=== PATIENT | male | born 1990 | race Caucasian/White ===

== ENCOUNTER 2018-10-04 13:27 | Emergency (ER) | payer OTHER ==
[2018-10-04 14:58] VITALS: RESP 18; TEMP 98.2
[2018-10-04 15:24] LABS: Appearance,Urine Clear (Clear); Bilirubin,Urine Negative (Negative); Blood,Urine Negative (Negative); Color,Urine Light Yellow; Glucose,Urine (UA) Negative (Negative); Ketones,Urine Negative (Negative); Leukocyte Esterase,Urine Negative (Negative); Nitrite,Urine Negative (Negative); PH, Urine 6.5 (5.0-8.0); Protein,Urine Negative (Negative); Specific Gravity,Urine 1.007 (1.001-1.035); Urobilinogen,Urine <2.0 mg/dL (<2.0)
--- NOTE | 2018-10-04 15:59 | US ---
EXAMINATION TYPE: US scrotum with doppler. Grayscale and color Doppler Duplex imaging performed of t johanny scrotum. DATE OF EXAM: 10/04/2018 COMPARISON: NONE CLINICAL HISTORY: Pain. left palp for 2 months, no swelling EXAM MEASUREMENTS: TESTICLES: Right Testicle: 4.8 x 3.1 x 2.3 cm Left Testicle: 4.9 x 3.2 x 2.5 cm EPIDIDYMIS HEAD: Right Epididymis: 1.3 cm Left Epididymis: 1.3 cm, at palpable was prominent heterogenous epididymis with tiny cyst 0.6 x 0.6 x 0.3cm. Epididymis is slightly hypervascular. Doppler performed to assess for testicular vascularity; good bilateral color flow and waveforms are s een. There is no evidence of testicular torsion. Presence of hydroceles: no Presence of varicoceles: no IMPRESSION: Heterogenous and slightly hypervascular epididymis appears to relate to epididymitis. Chr onic epididymitis is possible in this patient with 2 months of testicular pain.
[2018-10-04] MEDS ORDERED: cefTRIAXone 250 MG VIAL IM STA (16:08)
[2018-10-04] MEDS ORDERED: DOXYCYCLINE 100 MG CAP PO STA (16:08)
--- NOTE | 2018-10-04 16:47 | ED ---
General Adult HPI - General Chief complaint: Urogenital Stated complaint: scrotal mass Time Seen by Provider: 10/04/18 14:59 Source: patient, RN notes reviewed, old records reviewed Mode of arrival: ambulatory Limitations: no limitations - History of Present Illness Initial comments: 28-year-old male patient presents to ED complaining of lump on left testicle for approximately 1 month. Patient reports that he has a few episodes of painful urination over this time period. Denies any discharge, denies any concern for STI. Denies any past medical history. Denies other complaints. Systemic: Pt denies fatigue, fever/chills, rash. Pt denies weakness, night sweats, weight loss. Neuro: Pt denies headache, visual disturbances, syncope or pre-syncope. HEENT: Pt denies ocular discharge or irritation, otalgia, rhinorrhea, pharyngitis or notable lymphadenopathy. Cardiopulmonary: Pt denies chest pain, SOB, heart palpitations, dyspnea on exertion. Abdominal/GI: Pt denies abdominal pain, n/v/d. : Pt denies burning w/ urination, frequency/urgency. Denies new onset urinary or bowel incontinence. MSK: Pt denies myalgia, loss of strength or function in extremities. Neuro: Pt denies new onset weakness, paresthesias. - Related Data Previous Rx's Medication Instructions Recorded Doxycycline [Vibramycin] 100 mg PO BID 10 Days #20 cap 10/04/18 Allergies Allergy/AdvReac Type Severity Reaction Status Date / Time No Known Allergies Allergy Verified 10/04/18 14:58 Review of Systems ROS Statement: Those systems with pertinent positive or pertinent negative responses have been documented in the HPI. ROS Other: All systems not noted in ROS Statement are negative. Past Medical History Past Medical History: No Reported History History of Any Multi-Drug Resistant Organisms: None Reported Past Surgical History: No Surgical Hx Reported Past Psychological History: No Psychological Hx Reported Smoking Status: Current every day smoker Past Alcohol Use History: Occasional Past Drug Use History: Marijuana General Exam - General Exam Comments Initial Comments: Constitutional: NAD, AOX3, Pt has pleasant affect. HEENT: NC/AT, trachea midline, neck supple, no lymphadenopathy. Posterior pharynx non erythematous, without exudates. External ears appear normal, without discharge. Mucous membranes moist. Eyes PERRLA, EOM intact. There is no scleral icterus. No pallor noted. Cardiopulmonary: RRR, no murmurs, rubs or gallops, no JVD noted. Lungs CTAB in anterior and posterior chamorro. No peripheral edema. Abdominal exam: Abdomen soft and non-distended. Abdomen non-tender to palpation in all 4 quadrants. Bowel sounds active in LLQ. No hepatosplenomegaly. No ecchymosis Neuro: CN II-XII grossly intact. No nuchal rigidity. No raccon eyes, no fay sign, no hemotympanum. No cervical spinal tenderness. MSK: No posterior calf tenderness bilaterally, homans sign negative bilaterally. Posterior tibialis and radial pulse +2 bilaterally. Sensation intact in upper and lower extremities. Full active ROM in upper and lower extremities, 5/5 stregnth. : mildly enlarged painful left epididymitis, no other masses, no hernia, no blue dot sign, creamesteric reflex intact Limitations: no limitations Course Vital Signs 10/04/18 14:56 Temperature 98.2 F Pulse Rate 76 Respiratory 18 Rate Blood Pressure 129/80 O2 Sat by Pulse 99 Oximetry Medical Decision Making - Medical Decision Making 28-year-old male patient presents to ED complaining of lump on left testicle for approximately 1 month. Patient reports that he has a few episodes of painful urination over this time period. Denies any discharge, denies any concern for STI. Denies any past medical history. Denies other complaints. Pt VSS, afebrile. Physical exam displayed: mildly enlarged painful left epididymitis, no other masses, no hernia, no blue dot sign, creamesteric reflex intact UA was negative. Culture, gonorrhea/chlamydia pending. Ultrasound displayed left epididymitis. Patient will be treated with Rocephin IM as well as doxycycline for epididymitis, will be given urology follow-up. Case discussed with Dr. Murdock - Lab Data Lab Results 10/04/18 Range/Units 15:15 Urine Color Light Yellow Urine Appearance Clear (Clear) Urine pH 6.5 (5.0-8.0) Ur Specific [place] 1.007 (1.001-1.035) Urine Protein Negative (Negative) Urine Glucose (UA) Negative (Negative) Urine Ketones Negative (Negative) Urine Blood Negative (Negative) Urine Nitrite Negative (Negative) Urine Bilirubin Negative (Negative) Urine Urobilinogen <2.0 (<2.0) mg/dL Ur Leukocyte Esterase Negative (Negative) Disposition Clinical Impression: Epididymitis Disposition: HOME SELF-CARE Condition: Stable Instructions (If sedation given, give patient instructions): Epididymitis (ED) Additional Instructions: Patient to adhere to previously discussed treatment plan and will take medication(s) as directed. Patient to follow up with PCP in 1-2 days. Patient to return to ED if symptoms do not improve. Take medication as directed. Follow up with primary care provider and urologist tomorrow. Return to ER if condition worsens. Prescriptions: Doxycycline [Vibramycin] 100 mg PO BID 10 Days #20 cap Is patient prescribed a controlled substance at d/c from ED?: No Referrals: None,Stated [Primary Care Provider] - 1-2 days Steven North MD [STAFF PHYSICIAN] - 1-2 days
[2018-10-04 16:54] VITALS: BP 127/72; PULSE 72
[2018-10-05 15:10] LABS: N. gonorrhoeae,PCR Negative (Neg,Equiv); Neisseria Source Urine
[2018-10-05 15:15] LABS: C. trachomatis,PCR Negative (Neg,Equiv); Chlamydia trachomatis Source Urine
== END 2018-10-04 16:54 | disposition home or self-care (01) ==
LOC: EC 13:27
DX: N45.1 Epididymitis (principal); F17.200 Nicotine dependence, unspecified, uncomplicated
CPT/HCPCS: 81003; 87491; 87591; 87086; 93975; 76870; 99284; 96372; J0696

== ENCOUNTER 2019-08-15 13:50 | Emergency (ER) | payer OTHER ==
[2019-08-15 13:59] VITALS: BP 127/83; PULSE 91; RESP 18; TEMP 97.9
[2019-08-15] MEDS ORDERED: SULFAMETHOX-TMP 800-160MG 1 EACH TAB PO STA (14:46)
--- NOTE | 2019-08-15 14:49 | ED ---
Eye Problem HPI - General Chief complaint: Eye Problems Stated complaint: Eye Problem Time Seen by Provider: 08/15/19 14:03 Source: patient Mode of arrival: ambulatory Limitations: no limitations - History of Present Illness Initial comments: Patient is a 29-year-old male presenting to the emergency room with a chief complaint of is it near the eye. Patient states this started about 3 days ago and gradually increased in size. Patient reports now he has developed some swelling on the right eye. Patient denies any pain with extract her movements. Does report some redness of the eye but states that is because he has been constantly itching. Denies any discharge from the eye. Denies any night sweats fever or chills. Patient states he attempted to squeeze the lesion and able to get some pus out of there. - Related Data Previous Rx's Medication Instructions Recorded Doxycycline [Vibramycin] 100 mg PO BID 10 Days #20 cap 10/04/18 Sulfamethox-Tmp 800-160Mg [Bactrim 1 each PO Q12HR #20 tab 08/15/19 Ds] Allergies Allergy/AdvReac Type Severity Reaction Status Date / Time No Known Allergies Allergy Verified 10/04/18 14:58 Review of Systems ROS Statement: Those systems with pertinent positive or pertinent negative responses have been documented in the HPI. ROS Other: All systems not noted in ROS Statement are negative. Past Medical History Past Medical History: No Reported History History of Any Multi-Drug Resistant Organisms: None Reported Past Surgical History: No Surgical Hx Reported Past Psychological History: No Psychological Hx Reported Smoking Status: Current every day smoker Past Alcohol Use History: Occasional Past Drug Use History: Marijuana General Exam Limitations: no limitations General appearance: alert, in no apparent distress Head exam: Present: atraumatic, normocephalic, normal inspection Eye exam: Present: normal appearance (Mild swelling of the right upper eyelid with no cellulitic skin changes noted. No signs of periorbital or orbital cellulitis. Patient does have an abscess near the bridge of the nose and the medial aspect of the right eye.), PERRL, EOMI. Absent: scleral icterus, conjunctival injection, nystagmus, periorbital swelling, periorbital tenderness, other (No pain with extraocular eye movements.) Pupils: Present: normal accommodation ENT exam: Present: normal exam, normal oropharynx, mucous membranes moist Neck exam: Present: normal inspection, full ROM. Absent: tenderness Respiratory exam: Present: normal lung sounds bilaterally. Absent: respiratory distress, wheezes Cardiovascular Exam: Present: regular rate, normal rhythm, normal heart sounds Extremities exam: Present: normal inspection, full ROM. Absent: tenderness Back exam: Present: normal inspection, full ROM. Absent: tenderness Neurological exam: Present: alert, oriented X3 Psychiatric exam: Present: normal affect, normal mood Skin exam: Present: warm, dry, intact, normal color Course Vital Signs 08/15/19 13:57 Temperature 97.9 F Pulse Rate 91 Respiratory 18 Rate Blood Pressure 127/83 O2 Sat by Pulse 96 Oximetry Procedures - Incision & Drainage Consent Obtained: verbal consent Indication: Abscess Site: face Size (cm): 1 I&D Cleaning Method: Alcohol Wipe Sterile Field Used?: No Scalpel Used: #11 Needle Aspiration Performed?: No Irrigation Performed?: No I&D Drainage Obtained: Pus, Blood Culture Obtained?: No Complications: pain, bleeding Patient Tolerated Procedure: well, no complications Medical Decision Making - Medical Decision Making Patient a 29-year-old male presenting to the emergency room with chief complaint of incident near the eye. Patient appears to have a very small abscess. I was able to perform incision and drainage and get pus out of the lesion. Patient reports improvement in symptoms and states it feels like a pressure is not there anymore. Patient tolerated procedure well. Patient started Bactrim in the ED. Will be discharged with a 10 day course of Bactrim. Patient advised to apply warm compresses near the site of the abscess to promote full discharge. No signs of periorbital or orbital cellulitis. No pain with extraocular movements. Return parameters were thoroughly discussed with patient is understanding and agreeable. Case discussed with physician. Disposition Clinical Impression: Abscess of skin, Swelling of right eyelid Disposition: HOME SELF-CARE Condition: Stable Instructions (If sedation given, give patient instructions): Abscess (ED), Abscess Incision and Drainage (ED) Additional Instructions: Take prescribed medication as directed. Apply warm compress to the site that was drained. Return to emergency department if symptoms worsen. Is patient prescribed a controlled substance at d/c from ED?: No Referrals: Jonathan Pritchard MD [Primary Care Provider] - 1-2 days Time of Disposition: 14:49
== END 2019-08-15 14:55 | disposition home or self-care (01) ==
LOC: EC 13:50
DX: H00.031 Abscess of right upper eyelid (principal); F17.200 Nicotine dependence, unspecified, uncomplicated
CPT/HCPCS: 10060; 99283

== ENCOUNTER 2020-09-18 05:16 | Emergency (ER) | payer OTHER ==
[2020-09-18 05:27] VITALS: BP 140/66; PULSE 63; RESP 18; TEMP 98.7
--- NOTE | 2020-09-18 06:29 | ED ---
Extremity Problem HPI - General Chief complaint: Extremity Problem,Nontraumatic Stated complaint: Right arm swelling Time Seen by Provider: 09/18/20 06:03 Source: patient Mode of arrival: ambulatory - History of Present Illness Initial comments: Patient is a 30-year-old male presenting to emergency Department with complaints of pain in his right upper arm. He states he noticed pain for the past week and then noticed a small bump appear yesterday. He is concerned for an abscess. He does admit to being IV drug abuser. He denies any fevers or chills, no nausea or vomiting. Denies any chest pain or shortness of breath. Denies history of blood clots. He has no further complaints. - Related Data Previous Rx's Medication Instructions Recorded Doxycycline [Vibramycin] 100 mg PO BID 10 Days #20 cap 10/04/18 Sulfamethox-Tmp 800-160Mg [Bactrim 1 each PO Q12HR #20 tab 08/15/19 Ds] Cephalexin [Keflex] 500 mg PO Q6HR 7 Days #28 cap 09/18/20 Sulfamethox-Tmp 800-160Mg [Bactrim 1 each PO Q12HR 7 Days #14 tab 09/18/20 Ds] Allergies Allergy/AdvReac Type Severity Reaction Status Date / Time No Known Allergies Allergy Verified 09/18/20 05:27 Review of Systems ROS Statement: Those systems with pertinent positive or pertinent negative responses have been documented in the HPI. ROS Other: All systems not noted in ROS Statement are negative. Past Medical History Past Medical History: Hypertension History of Any Multi-Drug Resistant Organisms: None Reported Past Surgical History: Unable to Obtain Past Psychological History: No Psychological Hx Reported Smoking Status: Current every day smoker Past Alcohol Use History: Occasional Past Drug Use History: IV Drug Use, Marijuana General Exam - General Exam Comments Initial Comments: GENERAL: Patient is well-developed and well-nourished. Patient is nontoxic and in no acute distress. HEAD: Atraumatic, normocephalic. EYES: Pupils equal round and reactive to light, extraocular movements intact, sclera anicteric, conjunctiva are normal. Eyelids were unremarkable. ENT: Moist mucous membranes. NECK: Normal range of motion, supple without lymphadenopathy or JVD. LUNGS: Unlabored respirations. Breath sounds clear to auscultation bilaterally and equal. No wheezes rales or rhonchi. HEART: Regular rate and rhythm without murmurs, rubs or gallops. ABDOMEN: Soft, nontender, normoactive bowel sounds. MUSCULOSKELETAL: Normal extremities with adequate strength and normal range of motion, no pitting or edema. No clubbing or cyanosis. NEUROLOGICAL: Patient is alert and oriented x 3. SKIN: Warm, Dry, normal turgor. Patient has a very small area of induration noted, approximately 0.5 cm in diameter, of the right upper arm, there is some mild erythema present, there is no fluctuance, no abscess to drain at this time. There is no spreading erythema, no lines. Course Vital Signs 09/18/20 05:22 Temperature 98.7 F Pulse Rate 63 Respiratory 18 Rate Blood Pressure 140/66 O2 Sat by Pulse 93 L Oximetry Medical Decision Making - Medical Decision Making Patient is a 30-year-old male here with right upper arm pain for the past week, is a small area of induration over the right upper arm. He admits to IV drug abuse. Consistent with developing abscess. There is no fluctuance, nothing to drain at this time. Patient be started on antibiotics. Hes agreeable to this p federico of care. Return parameters were discussed with him and he verbalized understanding. Disposition Clinical Impression: Abscess of right upper extremity, IV drug user Disposition: HOME SELF-CARE Condition: Stable Instructions (If sedation given, give patient instructions): Abscess (ED) Additional Instructions: Please return to the Emergency Department if symptoms worsen or any other concerns. Take both antibiotics as prescribed. Use warmth to the area. Avoid IV drugs. Prescriptions: Sulfamethox-Tmp 800-160Mg [Bactrim Ds] 1 each PO Q12HR 7 Days #14 tab Cephalexin [Keflex] 500 mg PO Q6HR 7 Days #28 cap Is patient prescribed a controlled substance at d/c from ED?: No Referrals: Jonathan Pritchard MD [Primary Care Provider] - 1-2 days Time of Disposition: 06:29
== END 2020-09-18 06:42 | disposition home or self-care (01) ==
LOC: EC 05:16
DX: L02.413 Cutaneous abscess of right upper limb (principal); F19.10 Other psychoactive substance abuse, uncomplicated; I10 Essential (primary) hypertension; F17.200 Nicotine dependence, unspecified, uncomplicated; F12.90 Cannabis use, unspecified, uncomplicated
CPT/HCPCS: 99283

== ENCOUNTER 2020-10-01 15:06 | Emergency (ER) | payer OTHER ==
--- NOTE | 2020-10-01 18:27 | ED ---
General Adult HPI - General Chief complaint: Recheck/Abnormal Lab/Rx Stated complaint: Detox Time Seen by Provider: 10/01/20 18:03 Source: patient, family Mode of arrival: ambulatory Limitations: no limitations - History of Present Illness Initial comments: 30-year-old male presenting to the emergency department with chief complaint of withdrawing from Suboxone. Patient reports he was recently kicked out of his Suboxone contract and nondistended to control. Last time he used was about 3 days ago he's been getting off the streets. Patient is requesting something to help with the withdrawal symptoms. He reports inability to sleep and racing thoughts. Abdominal cramping nausea vomiting and diarrhea. States he has previously been into withdrawal and it feels just like it. Patient is requesting information for local rehab facilities. - Related Data Previous Rx's Medication Instructions Recorded Doxycycline [Vibramycin] 100 mg PO BID 10 Days #20 cap 10/04/18 Sulfamethox-Tmp 800-160Mg [Bactrim 1 each PO Q12HR #20 tab 08/15/19 Ds] Cephalexin [Keflex] 500 mg PO Q6HR 7 Days #28 cap 09/18/20 Sulfamethox-Tmp 800-160Mg [Bactrim 1 each PO Q12HR 7 Days #14 tab 09/18/20 Ds] LORazepam [Ativan] 1 mg PO HS 3 Days #3 tab 10/01/20 Allergies Allergy/AdvReac Type Severity Reaction Status Date / Time No Known Allergies Allergy Verified 10/01/20 15:27 Review of Systems ROS Statement: Those systems with pertinent positive or pertinent negative responses have been documented in the HPI. ROS Other: All systems not noted in ROS Statement are negative. Past Medical History Past Medical History: Hypertension History of Any Multi-Drug Resistant Organisms: None Reported Past Surgical History: Unable to Obtain Additional Past Surgical History / Comment(s): facial reconstruction Past Psychological History: No Psychological Hx Reported Smoking Status: Current every day smoker Past Alcohol Use History: Daily Past Drug Use History: Cocaine, Heroin, IV Drug Use, Marijuana, Methamphetamine, Opiates General Exam Limitations: no limitations General appearance: alert, in no apparent distress, anxious Head exam: Present: atraumatic, normocephalic, normal inspection Eye exam: Present: normal appearance Pupils: Present: normal accommodation ENT exam: Present: normal exam, normal oropharynx, mucous membranes moist Neck exam: Present: normal inspection, full ROM Respiratory exam: Present: normal lung sounds bilaterally. Absent: respiratory distress Cardiovascular Exam: Present: regular rate, normal rhythm, normal heart sounds GI/Abdominal exam: Present: soft. Absent: distended, tenderness, guarding, rebound Extremities exam: Present: normal inspection, full ROM Back exam: Present: normal inspection, full ROM Neurological exam: Present: alert, oriented X3 Psychiatric exam: Present: normal affect, normal mood Skin exam: Present: warm, dry, intact, normal color Course Vital Signs 10/01/20 15:28 Temperature 98.1 F Pulse Rate 74 Respiratory 16 Rate Blood Pressure 106/67 O2 Sat by Pulse 98 Oximetry Medical Decision Making - Medical Decision Making 30-year-old male presenting to emergency Department with a chief complaint of opiate withdrawal. I gave the patient contact information for local rehab facilities. I gave the patient a three-day course of Ativan to help with his withdrawal symptoms. Return parameters discussed with patient is understanding and agreeable. Disposition Clinical Impression: Opiate withdrawal Disposition: HOME SELF-CARE Condition: Stable Instructions (If sedation given, give patient instructions): Narcotic Withdrawal (ED) Additional Instructions: Please return to the Emergency Department if symptoms worsen or any other concerns. Follow up to a rehab facility clinic a Prescriptions: LORazepam [Ativan] 1 mg PO HS 3 Days #3 tab Is patient prescribed a controlled substance at d/c from ED?: Yes If prescribed controlled substance>3 days was MAPS reviewed?: Prescribed <3 Days Referrals: Jonathan Pritchard MD [Primary Care Provider] - 1-2 days Time of Disposition: 18:27
[2020-10-01 18:49] VITALS: BP 99/65; PULSE 57; RESP 18; TEMP 98
== END 2020-10-01 18:49 | disposition home or self-care (01) ==
LOC: EC 15:06
DX: F11.23 Opioid dependence with withdrawal (principal); I10 Essential (primary) hypertension; F17.200 Nicotine dependence, unspecified, uncomplicated; F12.90 Cannabis use, unspecified, uncomplicated
CPT/HCPCS: 99283